=== PATIENT | male | born 1960 | race Asian ===

== ENCOUNTER 2018-11-28 19:15 | Emergency (ER) | payer MEDICAID ==
[~2018-11-28] VITALS: Ht 152.4 cm; Wt 79.4 kg
[~2018-11-28 19:15] MED LIST: IBUPROFEN
[2018-11-28 19:20] VITALS: BP_SYST 138
--- NOTE | 2018-11-28 19:25 | NUR ---
Patient triaged and placed in waiting room. VSS and patient appears in no acute distress at this time. Accompanied by family, awaiting available bed, and MD notified of need for MSE.
--- NOTE | 2018-11-28 20:05 | NUR ---
Patient resting quietly in no acute distress with family, eating food at this time. No coughing/resp distress noted, no increase noted in work of breathing.
--- NOTE | 2018-11-28 20:20 | NUR ---
Pt ambulatory to bed 4 for evaluation
--- NOTE | 2018-11-28 20:50 | NUR ---
Pt BIB to ED C/O 4-day acute onset of a productive cough with brown sputum and sore throat. Pt concerned as he makes noises when he sleeps. Pt stated, he had his L lower lobe removed from his lung. 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 No other injuries and or complaints noted or observed. VSS no s/s of acute distress. Resting on gurney with rails up
--- NOTE | 2018-11-28 20:52 | NUR ---
Dr. Aponte bedside for pt eval
--- NOTE | 2018-11-28 21:00 | NUR ---
Portable X Ray bedside, pt in stable condition
--- NOTE | 2018-11-28 21:02 | NUR ---
Portable X Ray done, well tolerated. Now Lab bedside for blood draw
--- NOTE | 2018-11-28 21:07 | NUR ---
Blood draw finished at bedside well tolerated
[2018-11-28 21:13] LABS: BASOPHILS % (AUTO) 0.5 % (0.0-2.0); EOSINOPHILS # (AUTO) 0.2 K/uL (0.0-0.4); EOSINOPHILS % (AUTO) 2.6 % (0.0-4.0); HEMATOCRIT 45.4 % (36-54); HEMOGLOBIN 15.5 g/dL (14.0-18.0); LYMPHOCYTES % (AUTO) 47.3 % (20.5-51.5); MEAN CORPUSCULAR HEMOGLOBIN 29 pg (27-31); MEAN CORPUSCULAR HGB CONC 34 % (32-36); MEAN CORPUSCULAR VOLUME 85 fL (79.0-98.0); MONOCYTES % (AUTO) 15.3 % (1.7-9.3); NEUTROPHILS # (AUTO) 2.2 K/uL (1.8-7.7); NEUTROPHILS % (AUTO) 34.3 % (40.0-70.0); PLATELET COUNT (AUTO) 207 K/uL (130-430); RED BLOOD CELL COUNT(AUTO) 5.33 MIL/uL (4.2-6.2); WHITE BLOOD COUNT (AUTO) 6.3 K/uL (4.8-10.8)
[2018-11-28 21:28] LABS: CALCIUM 9.6 mg/dL (8.4-11.0); CREATININE 0.84 mg/dL (0.55-1.30); POTASSIUM 3.7 mmol/L (3.5-5.1)
[2018-11-28 21:33] LABS: ALBUMIN 3.7 g/dL (3.4-4.8); TOTAL BILIRUBIN 0.6 mg/dL (0.0-1.0)
[2018-11-28] MEDS: AZITHROMYCIN 250 MG TABLET PO ONE (21:49)
[2018-11-28 22:10] VITALS: BP_SYST 132
--- NOTE | 2018-11-28 22:10 | NUR ---
Patient given written and verbal discharge instructions and verbalizes understanding. ER MD discussed with patient the results and treatment provided. Patient in stable condition. ID arm band removed. Rx of Z Pack and Guaifenesin given. Patient educated on pain management and to follow up with PMD. Pain Scale 0/10. Opportunity for questions provided and answered. Medication side effect fact sheet provided.
== END 2018-11-28 22:10 | disposition home or self-care (01) ==
LOC: SED 19:15
DX: J18.8 Other pneumonia, unspecified organism (principal); E78.00 Pure hypercholesterolemia, unspecified
CPT/HCPCS: 36415; 71045; 80053; 85025; 99284; Q0144

== ENCOUNTER 2019-07-25 16:43 | Emergency (ER) | payer MEDICAID ==
[~2019-07-25] VITALS: Ht 154.9 cm; Wt 81.6 kg
[2019-07-25 17:38] VITALS: BP_SYST 143
--- NOTE | 2019-07-25 18:58 | NUR ---
Patient to ER bed H1 to gown for evaluation. Side rails up.
--- NOTE | 2019-07-25 19:00 | NUR ---
Pt c/o right knee pain s/p fall x 2 months ago. No improvement in pain after taking Motrin and Tylenol. No deformities or swelling noted.
--- NOTE | 2019-07-25 19:05 | NUR ---
Dr. Garrett assessing pt.
[2019-07-25 19:20] VITALS: BP_SYST 132
--- NOTE | 2019-07-25 19:20 | NUR ---
Patient given written and verbal discharge instructions and verbalizes understanding. ER MD discussed with patient the results and treatment provided. Patient in stable condition. ID arm band removed. Rx of [place] given. Patient educated on pain management and to follow up with PMD. Pain Scale 2/10. Opportunity for questions provided and answered. Medication side effect fact sheet provided.
== END 2019-07-25 19:20 | disposition home or self-care (01) ==
LOC: SED 16:43
DX: M25.561 Pain in right knee (principal); E78.00 Pure hypercholesterolemia, unspecified; Z79.899 Other long term (current) drug therapy
CPT/HCPCS: 73560-TC; 99283